=== PATIENT | male | born 1940 | race Caucasian/White ===

== ENCOUNTER → 2017-03-16 | Outpatient (CLI) | payer OTHER | LOC: MRI 06:31 | DX: Z45.018 Encounter for adjustment and management of other part of cardiac pacemaker (principal); M19.012 Primary osteoarthritis, left shoulder ==

== ENCOUNTER → 2021-01-13 | Outpatient (CLI) | payer OTHER | LOC: SJCVCIMAG 11:48 | PROVIDERS: ATTEND Internal Medicine | DX: I08.1 Rheumatic disorders of both mitral and tricuspid valves (principal); I11.9 Hypertensive heart disease without heart failure; I48.91 Unspecified atrial fibrillation; Z95.0 Presence of cardiac pacemaker ==

== ENCOUNTER → 2021-11-03 | Outpatient (CLI) | payer OTHER | LOC: HYPER 09:37 | PROVIDERS: ATTEND Emergency Medicine | DX: E11.622 Type 2 diabetes mellitus with other skin ulcer (principal); L89.153 Pressure ulcer of sacral region, stage 3; L98.492 Non-pressure chronic ulcer of skin of other sites with fat layer exposed; E11.42 Type 2 diabetes mellitus with diabetic polyneuropathy; I42.9 Cardiomyopathy, unspecified; K21.9 Gastro-esophageal reflux disease without esophagitis; I25.10 Atherosclerotic heart disease of native coronary artery without angina pectoris; I10 Essential (primary) hypertension; E78.5 Hyperlipidemia, unspecified; I48.91 Unspecified atrial fibrillation; M81.0 Age-related osteoporosis without current pathological fracture; G47.30 Sleep apnea, unspecified; E66.9 Obesity, unspecified; F32.9 Major depressive disorder, single episode, unspecified; Z68.29 Body mass index [BMI] 29.0-29.9, adult; Z85.820 Personal history of malignant melanoma of skin; Z79.4 Long term (current) use of insulin; Z79.899 Other long term (current) drug therapy; Z96.653 Presence of artificial knee joint, bilateral; Z98.890 Other specified postprocedural states; Z98.1 Arthrodesis status; Z98.41 Cataract extraction status, right eye; Z98.42 Cataract extraction status, left eye ==